=== PATIENT | female | born 1955 | race Caucasian/White ===

== ENCOUNTER 2018-12-31 08:10 | Day surgery (SDC) | payer MEDICARE, BC ==
[2018-12-31] MEDS ORDERED: Propofol 200 MG/20 ML SDV ONE (08:15)
[2018-12-31] MEDS ORDERED: fentaNYL 100 MCG/2 ML SDV ONE (08:16)
[2018-12-31] MEDS ORDERED: Midazolam 1 MG/ML 2 ML SDV ONE (08:16)
[2018-12-31] MEDS ORDERED: Sodium Chloride 0.9% 1,000 ML IV SCH (09:15)
--- NOTE | 2018-12-31 13:57 | OR ---
DATE OF PROCEDURE: 12/31/2018 SURGEON: Rey Sweet MD PROCEDURE: Colonoscopy. FINDINGS: Diverticulosis, mild. COMPLICATIONS: None. LIGHT BULB TESTER: None. ANESTHESIA: MAC. PREOPERATIVE DIAGNOSIS: Screening colonoscopy. POSTOPERATIVE DIAGNOSIS: Screening colonoscopy. RISKS: Risks, benefits, alternatives, and limitations including, but not limited to infection, bleeding, and perforation were explained to the patient, who wished to proceed. DESCRIPTION OF PROCEDURE: The patient was placed in left lateral decubitus position. Digital rectal exam was performed without abnormality. The scope was introduced and advanced atraumatically to the ileocecal valve. The scope was brought back through the ascending, transverse, descending colon, and retroflexed. The diverticulosis would be described as mild, however, did extend into the transverse colon. No masses. No polyps. No other abnormalities. The patient tolerated the procedure well. Rey Sweet MD /[id number]
== END 2018-12-31 11:29 | disposition home or self-care (01) ==
LOC: JP.SDS 08:10
PROVIDERS: ATTEND Surgery
DX: Z12.11 Encounter for screening for malignant neoplasm of colon (principal); K57.30 Diverticulosis of large intestine without perforation or abscess without bleeding; Z88.6 Allergy status to analgesic agent; Z88.1 Allergy status to other antibiotic agents; Z91.048 Other nonmedicinal substance allergy status
CPT/HCPCS: G0121; J2250; J2704; J3010

== ENCOUNTER 2020-06-01 06:59 | Day surgery (SDC) | payer MEDICARE, BC ==
[~2020-06-01 06:59] MED LIST: Lidocaine 1% 20 ML MDV ONE; Sodium Tetradecyl Sulfate 1% 20 MG/2 ML SDV ONE
[2020-06-01] MEDS ORDERED: Sodium Chloride 0.9% 1,000 ML IV SCH (07:30)
[2020-06-01] MEDS ORDERED: Propofol 200 MG/20 ML SDV ONE ×2 (07:56→08:55)
[2020-06-01] MEDS ORDERED: fentaNYL 100 MCG/2 ML SDV ONE (07:56)
[2020-06-01] MEDS ORDERED: Midazolam 1 MG/ML 2 ML SDV ONE (07:56)
[2020-06-01] MEDS ORDERED: Lidocaine 1% w/EPINEPHrine 50 ML, Sodium Bicarbonate 5 MEQ in Sodium Chloride 0.9% 950 ML INJECT ONE (08:30)
[2020-06-01] MEDS ORDERED: Sodium Chloride 0.9% 10 ML ONE (08:51)
--- NOTE | 2020-06-01 12:35 | OR ---
DATE OF PROCEDURE: 06/01/2020 SURGEON: Rey Sweet MD PROCEDURES: 1. Radiofrequency ablation of right greater saphenous vein. 2. Sclerotherapy right leg, multiple. 3. Compression wrap, right leg ([id number]). COMPLICATIONS: None. 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 ANESTHESIA: MAC/local. RISKS: Risks, benefits, alternatives, and limitations including, but not limited to infection, bleeding, and deep vein thrombosis formation were explained to the patient, who wished to proceed. PROCEDURE IN DETAIL: The patient was placed in supine position. The right GSV was accessed at the level of the ankle and advanced to about the proximal thigh, but due to tortuosity, this could not be advanced any further. Tumescent fluid was injected in 1 cm jacket around this, verified a second and a third time. Direct even pressure was held as the probe was deployed x2 proximally and distally, and x1 in all other segments. Sclerotherapy was then performed in the right leg using 0.33% sodium tetradactyl. There were 5 on the right. Always drawn back to ensure intravascular injection only. No more than 2 mL were injected in 1 location. Two-layer, 2-stage compression was then performed in the right leg in a distal to proximal [id number] 20 mmHg gradient. The patient tolerated the procedure well. Rey Sweet MD /[id number]
--- NOTE | 2020-06-19 16:45 | OR ---
DATE OF PROCEDURE: 06/01/2020 SURGEON: Rey Sweet MD ADDENDUM: Radiofrequency ablation procedure 06/01/2020. PREOPERATIVE DIAGNOSIS: Venous insufficiency with inflammation and pain. POSTOPERATIVE DIAGNOSIS: Venous insufficiency with inflammation and pain. Rey Sweet MD /[id number]
== END 2020-06-01 11:30 | disposition home or self-care (01) ==
LOC: JP.SDS 06:59
PROVIDERS: ATTEND Surgery
DX: I87.2 Venous insufficiency (chronic) (peripheral) (principal); I83.811 Varicose veins of right lower extremity with pain; G47.33 Obstructive sleep apnea (adult) (pediatric); I10 Essential (primary) hypertension; E66.01 Morbid (severe) obesity due to excess calories; Z68.41 Body mass index [BMI] 40.0-44.9, adult
CPT/HCPCS: 36475; J1642; J2001; J2250; J2704; J3010; J7030; J3490

== ENCOUNTER 2024-04-12 07:51 | Day surgery (SDC) | payer MEDICARE, BC ==
[2024-04-12] MEDS ORDERED: Propofol 200 MG/20 ML SDV ONE ×2 (08:02→08:59)
[2024-04-12] MEDS ORDERED: fentaNYL 50 MCG/ML SDV ONE (08:02)
[2024-04-12] MEDS: Lactated Ringers 1,000 ML IV SCH (08:47)
== END 2024-04-12 10:30 | disposition home or self-care (01) ==
LOC: JP.SDS 07:51
PROVIDERS: ATTEND Family Medicine
DX: Z12.11 Encounter for screening for malignant neoplasm of colon (principal); Z86.010 Personal history of colon polyps; K57.30 Diverticulosis of large intestine without perforation or abscess without bleeding; J45.909 Unspecified asthma, uncomplicated; G47.33 Obstructive sleep apnea (adult) (pediatric)
CPT/HCPCS: G0105; J2704; J3010; J7120